=== PATIENT | male | born 1985 ===

== ENCOUNTER 2018-11-25 03:30 | Emergency (ER) | payer SELFPAY ==
[2018-11-25 03:40] VITALS: RESP 16
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
[2018-11-25 05:34] VITALS: BP 141/74; PULSE 100; TEMP 98.9; O2SAT 97
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
== END 2018-11-25 05:42 | disposition home or self-care (01) ==
LOC: H.ER 03:30
DX: F10.10 Alcohol abuse, uncomplicated (principal); S00.83XA Contusion of other part of head, initial encounter; S09.90XA Unspecified injury of head, initial encounter; Y04.0XXA Assault by unarmed brawl or fight, initial encounter